=== PATIENT | female | born 1940 | race Hispanic/Latino ===

== ENCOUNTER 2021-10-05 07:54 | Observation (INO) | payer MEDICARE ==
[2021-10-04 14:03] LABS: BASOPHILS % (AUTO) 1.1 % (0.0-5.0); EOSINOPHILS % (AUTO) 4.5 % (0.0-8.0); HEMATOCRIT 43.6 % (36-48); LYMPHOCYTES % (AUTO) 19.3 % (21.0-51.0); MEAN CORPUSCULAR HEMOGLOBIN 29.6 pg (27.0-33.0); MEAN CORPUSCULAR HGB CONC 32.3 g/dL (32.0-36.0); MEAN CORPUSCULAR VOLUME 91.4 fL (79-99); MONOCYTES % (AUTO) 9.4 % (3.0-13.0); NEUTROPHILS % (AUTO) 65.4 % (40.0-77.0); PLATELET COUNT (AUTO) 277 K/uL (130-400); RED BLOOD CELL COUNT(AUTO) 4.77 MIL/uL (4.00-5.50); RED CELL DISTRIBUTION WIDTH 13.1 % (11.0-15.5)
[2021-10-04 14:04] LABS: APPEARANCE,URINE Clear (CLEAR); BILIRUBIN,URINE Negative (NEGATIVE); COLOR,URINE Yellow (YELLOW); GLUCOSE, URINE (UA) Negative (NEGATIVE); KETONES,URINE Negative (NEGATIVE); LEUKOCYTE ESTERASE ,URINE Negative (NEGATIVE); NITRATE,URINE Negative (NEGATIVE); OCCULT BLOOD,URINE Negative (NEGATIVE); PROTEIN,URINE Negative (NEGATIVE)
[2021-10-04 14:13] LABS: CREATININE 0.7 mg/dL (0.5-1.5); POTASSIUM 4.7 mmol/L (3.5-5.1)
[2021-10-04 14:25] LABS: INR 0.94 (0.85-1.15); PROTHROMBIN TIME 10.3 SEC (9.6-11.6)
[2021-10-04 14:26] LABS: PARTIAL THROMBOPLASTIN TIME 25.3 SEC (26.3-35.5)
[2021-10-04 16:43] VITALS: BP 188/72
[2021-10-05] VITALS (9 sets, daily range): BP systolic 130–178; BP diastolic 43–80
[~2021-10-05] VITALS: Ht 160 cm; Wt 77.2 kg
[~2021-10-05 07:54] MED LIST: 0.9% NACL 500ML IV.SOLN 500 ML IV SCH; AMLO-258 PO; APIX5TAB PO; ASPI-1026 PO; CHOL200059 PO; EZET10TA13 PO; ISOS30TA92 PO; LISI20TA24 PO; METO-391 PO; NITR0.4T SL; PRAV40TA3 PO
[2021-10-05] MEDS ORDERED: 0.9%NACL 1000ML 1,000 ML IV ONE (08:42)
[2021-10-05] MEDS ORDERED: NITROGLYCERIN 2 MG VIAL IV ONE (11:54)
[2021-10-05] MEDS ORDERED: IOHEXOL 350 MG/ML 100ML INFUS..BTL IV ONE (11:54)
[2021-10-05] MEDS ORDERED: LIDOCAINE HCL 400MG/20ML VIAL ONE (11:54)
[2021-10-05] MEDS ORDERED: HEPARIN 10,000 UNIT/10ML (1,000 UNIT/ML) VIAL ONE (11:54)
[2021-10-05] MEDS ORDERED: IOHEXOL-350 50ML VIAL IV ONE (11:54)
[2021-10-05] MEDS ORDERED: CLOPIDOGREL 300MG TAB ONE (13:19)
[2021-10-05] MEDS ORDERED: ASPIRIN 325MG EC TAB PO ONE (13:19)
[2021-10-05] MEDS ORDERED: ONDANSETRON 4MG INJ IVP PRN (13:30)
[2021-10-05] MEDS ORDERED: MORPHINE 5 MG/ML VIAL (5MG OR GREATER DOSE) IVP SCH ×2 (13:30)
[2021-10-05] MEDS ORDERED: TEMAZEPAM 30 MG CAP PO PRN (13:30)
[2021-10-05] MEDS ORDERED: ACETAMINOPHEN WITH CODEINE 1 TAB TAB PO PRN ×2 (13:30)
[2021-10-05] MEDS ORDERED: ONDANSETRON 4MG INJ IVP SCH (13:30)
[2021-10-06] MEDS ORDERED: CLOPIDOGREL 75MG TAB PO SCH (09:00)
[2021-10-06] MEDS ORDERED: ASPIRIN 81MG CHEW TAB PO SCH (09:00)
[2021-10-06] MEDS ORDERED: PANTOPRAZOLE 40 MG TAB DR PO SCH (09:00)
== END 2021-10-05 17:20 | disposition home or self-care (01) ==
LOC: DAH 07:54 → DAHIP 07:55 → DAH 07:55 → DAHIP 17:20
PROVIDERS: ADMIT Internal Medicine Cardiovascular Disease; ATTEND Internal Medicine Cardiovascular Disease
DX: I25.10 Atherosclerotic heart disease of native coronary artery without angina pectoris (principal); I10 Essential (primary) hypertension; I22.2 Subsequent non-ST elevation (NSTEMI) myocardial infarction; I25.2 Old myocardial infarction; R09.89 Other specified symptoms and signs involving the circulatory and respiratory systems; E78.5 Hyperlipidemia, unspecified; I21.4 Non-ST elevation (NSTEMI) myocardial infarction; I48.0 Paroxysmal atrial fibrillation; Z98.51 Tubal ligation status; Z95.1 Presence of aortocoronary bypass graft; Z79.01 Long term (current) use of anticoagulants; Z79.82 Long term (current) use of aspirin
CPT/HCPCS: 36415; 71045; 80048; 81003; 85025; 85610; 85730; 93005 ×2; 93458; A4215; A4216; A4221; A4222; A4223 ×3; A4606; A4663; C1725; C1760; C1769; C1874; C1887; C1894; C9600; G0378 ×4; J1644 ×2; J3490 ×2; J7030; Q9965; Q9967 ×2